=== PATIENT | female | born 1965 | race Caucasian/White ===

== ENCOUNTER 2020-06-09 07:13 | Outpatient (CLI) | payer OTHER, SELFPAY ==
[2020-06-09 07:43] LABS: Alanine Aminotransferase 28 U/L (4-35); Albumin Level 4.2 g/dL (3.5-5.1); Alkaline Phosphatase 62 U/L (38-126); Anion Gap 6 mmol/L (8-16); Aspartate Amino Transferase 26 U/L (14-36); Bilirubin,Total 0.5 mg/dL (0.2-1.3); Blood Urea Nitrogen 13 mg/dL (7-17); Calcium 8.8 mg/dL (8.4-10.2); Carbon Dioxide 30 mmol/L (22-30); Chloride 105 mmol/L (98-107); Estimated Glomerular Filt Rate > 60; Glucose 100 mg/dL (65-105); Potassium 3.9 mmol/L (3.4-5.0); Sodium 141 mmol/L (137-145)
== END 2020-06-09 07:14 | disposition home or self-care (01) ==
PROVIDERS: PCP Family Medicine; Visit Provider Family Medicine
DX: R19.00 Intra-abdominal and pelvic swelling, mass and lump, unspecified site (principal); R30.0 Dysuria
CPT/HCPCS: 36415; 80053

== ENCOUNTER → 2020-06-10 14:55 | Outpatient (CLI) | payer OTHER, SELFPAY ==
--- NOTE | ~2020-06-10 | US_ITS ---
EXAMINATION: US pelvic complete DATE: 06/10/2020 15:20 INDICATION: Intra-abdominal and pelvic swelling, dysuria TECHNIQUE: Multiple transabdominal sonographic images of the pelvis were obtained. COMPARISON: None. FINDINGS: The uterus measures 8.2 x 3.4 x 3.9 cm. The endometrial complex measures 4 mm. The right ov tejal measures 1.7 x 2.1 x 2.3 cm. The left ovary measures 2.4 x 1.5 x 2.1 cm. There is normal vascular flow in the ovaries. There is no free fluid in the pelvis. IMPRESSION: 1. No sonographic correlate for the patient's symptoms. Reviewed, dictated and finalized at location A.
== END ==
PROVIDERS: PCP Family Medicine; Visit Provider Family Medicine
DX: R19.00 Intra-abdominal and pelvic swelling, mass and lump, unspecified site (principal); R30.0 Dysuria
CPT/HCPCS: 76856

== ENCOUNTER → 2020-10-20 10:44 | Outpatient (CLI) | payer OTHER, SELFPAY ==
--- NOTE | ~2020-10-20 | XR_ITS ---
XR thoracic spine 3V DATE: 10/20/2020 11:10 INDICATION: Back pain, scoliosis TECHNIQUE: Standing AP and lateral and swimmer views COMPARISON: None FINDINGS: Moderate degenerative disc disease at C5-6 and moderately severe degenerative disc disease at C6-7. Diffuse osteopenia. There is minimal dextro scoliosis of the thoracic spine. No fracture or dislocation or bone destruction. The thoracic pedicles are intact. There is minimal th oracic spine degenerative spurring. No paraspinal soft tissue thickening. Status post cholecystectomy. IMPRESSION: Diffuse osteopenia Degenerative changes of the cervical and to lesser extent thoracic spine Minimal dextroscoliosis of the thoracic spine Reviewed, dictated and finalized at location A.
== END ==
PROVIDERS: PCP Family Medicine; Visit Provider Family Medicine
DX: M54.9 Dorsalgia, unspecified (principal); M41.9 Scoliosis, unspecified; M85.88 Other specified disorders of bone density and structure, other site
CPT/HCPCS: 72072

== ENCOUNTER → 2020-10-26 13:26 | Outpatient (CLI) | payer OTHER, SELFPAY ==
--- NOTE | ~2020-10-26 | DEXA_ITS ---
Bone Density Report Name: Bety Barrientos Age: 55 Sex: Female Ethnicity: White Date of : 1965 Indication: postmenopausal; screening for osteoporosis; prior fracture; Referring Provider: HARLEY ESPOSITO Study: Bone densitometry was performed. Exam Date: October 26, 2020 Accession number: [id number] Bone Density: Region BMD T-score Z-score Classification AP Spine (L1-L4) 1.013 -0.3 0.8 Normal Femoral Neck (Left) 0.697 -1.4 -0.3 Osteopenia Total Hip (Left) 0.951 0.1 0.8 Normal Femoral Neck (Right) 0.802 -0.4 0.6 Normal Total Hip (Right) 0.908 -0.3 0.4 Normal Total Hip Mean 0.930 -0.1 0.6 Normal World Health Organization criteria for BMD impression classify patients as: Normal (T-score at or above -1.0), Osteopenia (T-score between -1.0 and -2.5), or Osteoporosis (T-score at or below -2.5). 10-year Fracture Risk(1): Major Osteoporotic Fracture 11% Hip Fracture 0.7% Reported Risk Factors: [place] (), Neck BMD=0.697, BMI=30.8, previous fracture (1) FRAX(R) Version 3.08. Fracture probability calculated for an untreated patient. Fracture probability may be lower if the patient has received treatment. Clinical Information Provided by Patient: Has had a low trauma fracture Patient maximum height was 65 Menopause Age: 53 No regular weight bearing exercise Drinks caffeinated beverages Onset of menses at age 13 Number of children 2 Impression: The patient has low bone mass, based on the Left Femoral Neck T-score. The patient has an estimated ten-year risk of hip fracture of 0.7% and an estimated ten-year risk of major fracture of 11%, based on the WHO FRAX algorithm. The patient has risk factors, including: previous fracture. Discussion: BONE DENSITY IS LOW AT ONE OR MORE SKELETAL SITES. This patient's lowest T-score is low at one or more skeletal sites. It meets the World Health Organization's (WHO) criteria for ?low bone mass? (T-score between -1.0 and -2.5). The patient's 10-year risk of fracture as calculated by FRAX is less than the threshold where pharmacological therapy is recommended by the National Osteoporosis Foundation (NOF). However, all treatment decisions require clinical judgment and consideration of individual patient factors, including patient preferences, comorbidities, previous drug use, risk factors not captured in the FRAX model (e.g., frailty, falls, vitamin D deficiency, increased bone turnover, interval significant decline in bone density) and possible under or overestimation of fracture risk by FRAX. The patient should follow a healthful lifestyle (good nutrition with adequate calcium and vitamin D, and appropriate weight-bearing exercise). Follow-Up: Consider repeating this study in 2 to 3 years to reassess this patient's status, or sooner if there is marianna
== END ==
PROVIDERS: PCP Family Medicine; Visit Provider Family Medicine
DX: M85.852 Other specified disorders of bone density and structure, left thigh (principal)
CPT/HCPCS: 77080

== ENCOUNTER 2020-12-17 08:20 | Outpatient (CLI) | payer OTHER, SELFPAY ==
[2020-12-17 09:47] LABS: Basophils Percent Auto 0.6 % (0.2-1.2); Eosinophils Absolute Auto 0.2 K/mm3 (0-0.3); Eosinophils Percent Auto 3.5 % (0-4.4); Hematocrit 40.6 % (37.0-47.0); Hemoglobin 13.4 g/dL (12.0-15.0); Immature Granulocyte Absolute 0.02 K/mm3 (0.00-0.031); Immature Granulocyte Percent A 0.3 % (0-0.5); Lymphocytes Absolute Auto 1.68 K/mm3 (0.9-3.2); Lymphocytes Percent Auto 25.9 % (18.3-44.2); Mean Corpuscular Hemoglobin 32.1 pg (26-34); Mean Corpuscular Volume 97.1 fl (80-100); Monocytes Absolute Auto 0.4 K/mm3 (0.1-0.6); Monocytes Percent Auto 6.5 % (2.6-8.5); Neutrophils Absolute Auto 4.1 K/mm3 (1.3-6.7); Neutrophils Percent Auto 63.2 % (45.5-73.1); Platelet Count Result 291 k/mm3 (150-375); Red Blood Count 4.18 M/mm3 (4.2-5.4); Red Cell Distribution Width 11.9 % (11.5-14.5); White Blood Count 6.5 K/mm3 (4.5-10.0)
[2020-12-17 11:29] LABS: Alanine Aminotransferase 21 U/L (4-35); Albumin Level 4.5 g/dL (3.5-5.1); Alkaline Phosphatase 57 U/L (38-126); Amylase 66 U/L (30-110); Anion Gap 8 mmol/L (8-16); Aspartate Amino Transferase 24 U/L (14-36); Bilirubin,Total 0.5 mg/dL (0.2-1.3); Blood Urea Nitrogen 8 mg/dL (7-17); Calcium 8.9 mg/dL (8.4-10.2); Carbon Dioxide 28 mmol/L (22-30); Chloride 107 mmol/L (98-107); Cholesterol 208 mg/dL (0-200); Estimated Glomerular Filt Rate > 60; Glucose 96 mg/dL (65-110); HDL Direct 50 mg/dL; Lipase 92 U/L (23-300); Potassium 4.4 mmol/L (3.4-5.0); Sodium 143 mmol/L (137-145); Triglycerides 112 mg/dL (<150)
[2020-12-17 11:40] LABS: LDL Cholesterol Direct 115 mg/dL
== END 2020-12-17 08:21 | disposition home or self-care (01) ==
PROVIDERS: PCP Family Medicine; Visit Provider Physician Assistant Medical
DX: E66.9 Obesity, unspecified (principal); R10.9 Unspecified abdominal pain; K90.0 Celiac disease; Z68.31 Body mass index [BMI] 31.0-31.9, adult
CPT/HCPCS: 36415; 80053; 80061; 82150; 83690; 84443; 85025

== ENCOUNTER → 2021-04-15 10:07 | Outpatient (CLI) | payer OTHER, SELFPAY ==
--- NOTE | ~2021-04-15 | MR_ITS ---
EXAMINATION: MR thoracic spine wo con DATE: 04/15/2021 10:54 INDICATION: Thoracic radiculopathy. TECHNIQUE: Magnetic resonance imaging (MRI) of the thoracic spine was performed without intravenous c ontrast. Sagittal localizer T1-weighted FSE of the cervical spine was obtained. Thoracic spine sequen quita included sagittal T2-weighted FSE, sagittal T1-weighted FSE, sagittal STIR FSE, and axial T2-weig hted FSE. COMPARISON: Thoracic spine radiographs 10/20/2020 FINDINGS: There is 7 degrees dextrocurvature of thoracic lumbar spine. Vertebral body heights are nor mal. There is mildly decreased disc height from T3-T4 through T6-T7 and at T12-L1. At T12-L1, there i s a right central extrusion with mild central canal stenosis. There is multilevel facet joint osteoar thritis, severe in upper thoracic spine. On the right, there is mild neural foraminal stenosis T2-T3, T3-T4, T5-T6, and T6-T7. On the left, there is mild neural foraminal stenosis at T1-T2, T2-T3, T3-T4 , and T4-T5. The spinal cord signal intensity is normal. IMPRESSION: 1. Mild thoracic spondylosis. Reviewed, dictated and finalized at location E. [employer]
--- NOTE | ~2021-04-15 | MR_ITS ---
EXAMINATION: MR lumbar spine wo con EXAM DATE: 04/15/2021 11:07 INDICATION: M54.17 - Radiculopathy, lumbosacral region . TECHNIQUE: Multi-sequential, multiplanar MR images of the lumbar spine were obtained without contrast . Sagittal T1, T2, T2 fat saturation images. Axial T2 weighted images. There is no prior study for comparison. FINDINGS: Mild to moderate loss of the L4-5 and L5-S1 disc height. Mild disc bulges at T11-T12, L4-5 and L5-S1. There are no suspicious marrow signal abnormalities. The vertebral bodies are aligned in t he AP dimension. Paraspinal soft tissue is unremarkable. Level by level evaluation: T12-L1: Disc does not extend beyond the endplate margin. Facet arthropathy: Mild. Neural foraminal stenosis: No stenosis. Central canal stenosis: No stenosis. L1-L2: Disc does not extend beyond the endplate margin. Facet arthropathy: Mild. Neural foraminal stenosis: No stenosis. Central canal stenosis: No stenosis. L2-L3: Disc does not extend beyond the endplate margin. Facet arthropathy: Mild to moderate. Neural foraminal stenosis: No stenosis. Central canal stenosis: No stenosis. L3-L4: Disc does not extend beyond the endplate margin. Facet arthropathy: Moderate. Neural foraminal stenosis: No stenosis: Central canal stenosis: No stenosis. L4-5: There is a mild diffuse disc bulge. Facet arthropathy: Mild to moderate. Neural foraminal stenosis: Mild bilateral. Central canal stenosis: Mild. L5-S1: Mild disc bulge. Facet arthropathy: Mild to moderate. Neural foraminal stenosis: Mild bilateral . Central canal stenosis: Mild. IMPRESSION: Mild to moderate lumbar spondylosis. Reviewed, dictated and finalized at location B. [employer]
== END ==
PROVIDERS: PCP Family Medicine; Visit Provider Family Medicine
DX: M47.27 Other spondylosis with radiculopathy, lumbosacral region (principal); M47.24 Other spondylosis with radiculopathy, thoracic region
CPT/HCPCS: 72146; 72148

== ENCOUNTER 2021-08-26 10:48 | Emergency (ER) | payer OTHER, SELFPAY ==
[2021-08-26 10:55] VITALS: BP 122/67; PULSE 73; RESP 18; TEMP 36.3; O2SAT 100
--- NOTE | 2021-08-26 11:26 | ED.FEMALEGU ---
HPI - Female Genitourinary General Chief complaint: Urogenital-Female Stated complaint: blood clots in urine Time Seen by Provider: 08/26/21 11:27 Source: patient, RN notes reviewed and old records reviewed Mode of arrival: ambulatory Limitations: no limitations History of Present Illness HPI Narrative: 55 year old female who presents to [facility] care with complaints of dime size blood clots in urine today and urgency with urination, Patient reports that she had some blood in her urine one week ago and her doctors office called in a prescription for Macrobid which she completed.Patient reports that she does have some left flank discomfort, denies any burning or pain with urination. Patient reports that she has not had any nausea or vomiting or any episodes of fevers. MD elicited complaint: UTI and other (hematuria) Pertinent past history: tubal ligation and other (post menopausal) Onset (ago): hour(s) (this morning) Related Data Allergies Allergy/AdvReac Type Severity Reaction Status Date / Time Penicillins Allergy Intermediate throat Verified 08/26/21 10:56 swelling Review of Systems Review of Systems: CONSTITUTIONAL: Denies fever, chills, or sweats. EYES: Denies visual changes, redness, or discharge. ENT: Denies rhinorrhea, congestion, sore throat, or otalgia. CARDIOVASCULAR: Denies chest pain, palpitations, or edema. RESPIRATORY: Denies cough or dyspnea. GASTROINTESTINAL: Denies abdominal pain, nausea, vomiting, or diarrhea. GENITOURINARY: Positive urinary urgency and hematuria. SKIN: Denies rash or itching. MUSCULOSKELETAL: Denies any acute back pain, joint pain, or myalgia. NEUROLOGIC: Denies headache, numbness, or weakness. PSYCHIATRIC: Denies anxiety or depression. [facility] Past Medical History Medical History (Updated 08/26/21 @ 11:39 by Dina Prabhakar NP) Osteopenia Sleep apnea with use of continuous positive airway pressure (CPAP) Xerostomia Surgical History Surgical History Status post nasal septoplasty (~03/2019) Family History Family History Grandparent Family history of kidney disease Carcinoma of colon Family history of Alzheimer's disease Family history of primary malignant neoplasm of liver Bladder cancer Mother Family history of lung cancer Family history of mental disorder Family history of malignant neoplasm of bone Father Family history of Alzheimer's disease Social History Social History (Updated 03/16/21 @ 13:26 by Elizabeth Pollack, [facility]) Smoking status: Never smoker Alcohol intake: current Comments At time of signature, agree with nursing past medical, surgical, social and family history. There is no relevant family history pertinent to the presenting complaint Exam Narrative: GENERAL: Well-appearing, well-nourished, and in no acute distress. HEAD: Normocephalic, atraumatic. EYES: PERRLA and EOMI. ENT: Nares clear, no rhinorrhea or epistaxis. Mucous membranes moist. NECK: Supple.no lymphadenopathy CHEST: Clear to auscultation. No respiratory distress. SAO2 100% on room air HEART: Regular rate and rhythm. No murmur heard. Normal peripheral pulses. ABDOMEN: Soft, nontender to palpation, nondistended, normal active bowel sounds, denies any suprapubic pain, no pain to left flank on examination EXTREMITIES: Normal range of motion. No edema. SKIN: Warm, dry, no rash. NEURO: No focal deficits. Alert and oriented x3. Course Course Level of Care: Express Care Visit Vital Signs Vital signs: Vital Signs Temperature 36.3 C L 08/26/21 10:55 Pulse Rate 73 08/26/21 10:55 Respiratory Rate 18 08/26/21 10:55 Blood Pressure 122/67 08/26/21 10:55 Pulse Oximetry 100 08/26/21 10:55 Oxygen Delivery Room Air 08/26/21 10:55 Temperature 36.3 C L 08/26/21 10:55 Pulse Rate 73 08/26/21 10:55 Respiratory Rate 18 08/26/21 10:55 Blood Pr
== END 2021-08-26 11:43 | disposition home or self-care (01) ==
PROVIDERS: Emergency Provider Registered Nurse; PCP Family Medicine
DX: N39.0 Urinary tract infection, site not specified (principal); M85.80 Other specified disorders of bone density and structure, unspecified site; G47.30 Sleep apnea, unspecified
CPT/HCPCS: 81003; 87086; 99213; G0463

== ENCOUNTER → 2021-09-14 14:18 | Outpatient (CLI) | payer OTHER, SELFPAY ==
--- NOTE | ~2021-09-14 | CT_ITS ---
EXAMINATION: CT abdomen pelvis wo con DATE: 09/14/2021 14:33 INDICATION: Hematuria TECHNIQUE: Computed tomography (CT) of the abdomen and pelvis was performed without intravenous contr ast. Automated exposure control and iterative reconstruction technique were employed. Exam dose: 695 .97 mGy-cm total exam DLP. COMPARISON: None. FINDINGS: The lung bases are clear. Normal heart size. No pericardial or pleural effusion. Status post cholecystectomy. The liver, spleen, pancreas, adrenal glands and kidneys are unremarkable on this limited noncontrast examination. No bile duct or pancreatic duct dilatation. No urinary tract calculus or hydroureteronephrosis. The uterus and adnexal areas and urinary bladder are unremarkable. Normal appendix. No bowel obstruction or intraperitoneal free air. Normal caliber of the abdominal aorta. No intraperitoneal or retroperitoneal or pelvic mass lesion o r lymphadenopathy. IMPRESSION: Status post cholecystectomy Reviewed, dictated and finalized at Location A. Reviewed, dictated and finalized at location A. IMPRESSION: Status post cholecystectomy
== END ==
PROVIDERS: PCP Family Medicine; Visit Provider Physician Assistant
DX: R31.9 Hematuria, unspecified (principal)
CPT/HCPCS: 74176

== ENCOUNTER 2021-12-21 10:00 | Emergency (ER) | payer OTHER, SELFPAY ==
[2021-12-21 10:09] VITALS: BP 125/66; PULSE 70; RESP 16; TEMP 37.1; O2SAT 100
--- NOTE | 2021-12-21 10:19 | ED.URI ---
HPI - URI/Sore Throat General Chief Complaint: Upper Respiratory Infection Stated Complaint: sore throat,fever, congestion Time Seen by Provider: 12/21/21 10:19 History of Present Illness HPI Narrative: 56-year-old female presenting for complaint of sore throat, sinus congestion and fever at the onset of symptoms about 3 days ago. She denies nausea, vomiting, diarrhea, shortness of breath or wheezing. She has taken [id number] medication for symptoms. She denies sick contacts. She states she is going out of town and is concerned to expose people. Negative covid test at home today. Related Data Allergies Allergy/AdvReac Type Severity Reaction Status Date / Time Penicillins Allergy Intermediate throat Verified 12/21/21 10:22 swelling Review of Systems Review of Systems: CONSTITUTIONAL: Denies body aches, fever, chills, or sweats. EYES: Denies visual changes, redness, or discharge. ENT: reports rhinorrhea, congestion, sore throat, otalgia. CARDIOVASCULAR: Denies chest pain, palpitations, or edema. RESPIRATORY: Denies dyspnea. GASTROINTESTINAL: Denies abdominal pain, nausea, vomiting, or diarrhea. MUSCULOSKELETAL: Denies back pain, joint pain, or myalgia. NEUROLOGIC: Denies headache PMFSH Past Medical History Medical History Fatigue Osteopenia Sleep apnea with use of continuous positive airway pressure (CPAP) Xerostomia Surgical History Surgical History Status post nasal septoplasty (~03/2019) Family History Family History Grandparent Family history of kidney disease Carcinoma of colon Family history of Alzheimer's disease Family history of primary malignant neoplasm of liver Bladder cancer Mother Family history of lung cancer Family history of mental disorder Family history of malignant neoplasm of bone Father Family history of Alzheimer's disease Social History Social History Smoking status: Never smoker Alcohol intake: current Exam Narrative: GENERAL: well-appearing EYES: conjunctivae clear ENT: Mucous membranes moist. TMs pearly glasgow with normal light reflex bilaterally; no tragal tenderness. Oropharynx erythematous without lesions. NECK: Supple. No lymphadenopathy CHEST: Clear to auscultation, breath sounds equal. HEART: Regular rate and rhythm. No murmur heard. SKIN: Warm, dry, no rash. NEURO: Alert and oriented x3. Course Course Emergency Course: Patient is aware of diagnosis, understands and agrees to treatment plan. Anticipatory guidance given. Patient agrees to follow-up as directed and is aware of reasons to seek care at the emergency department. Portions of this record may have been created with voice recognition software Level of Care: Express Care Visit Vital Signs Vital signs: Vital Signs Temperature 98.7 F 12/21/21 10:09 Pulse Rate 70 12/21/21 10:09 Respiratory Rate 16 12/21/21 10:09 Blood Pressure 125/66 12/21/21 10:09 Pulse Oximetry 100 12/21/21 10:09 Temperature 98.7 F 12/21/21 10:09 Pulse Rate 70 12/21/21 10:09 Respiratory Rate 16 12/21/21 10:09 Blood Pressure 125/66 12/21/21 10:09 Pulse Oximetry 100 12/21/21 10:09 MDM - URI/Sore Throat MDM Narrative Medical decision making narrative: Neg strep result reviewed with pt. Advise supportive treatments. Patient is appropriate for outpatient treatment and follow-up. Differential Diagnosis Differential diagnosis: Likely upper respiratory infection, viral infection and pharyngitis Lab Data Labs: Strep Screen Presumptive Negative *(Reference Range: Negative)* Discharge Plan Discharge Clinical Impression: Upper respiratory infection Patient Disposition: Home,
== END 2021-12-21 10:50 | disposition home or self-care (01) ==
PROVIDERS: Emergency Provider Nurse Practitioner Family; PCP Family Medicine
DX: J06.9 Acute upper respiratory infection, unspecified (principal); M85.80 Other specified disorders of bone density and structure, unspecified site; G47.30 Sleep apnea, unspecified
CPT/HCPCS: 87081; 87880; 99213; G0463

== ENCOUNTER 2022-01-05 07:27 | Outpatient (CLI) | payer OTHER, SELFPAY ==
--- NOTE | ~2022-01-05 | MM_ITS ---
EXAMINATION: MM screening dustin BI w susan HISTORY: Screening TECHNIQUE: Craniocaudal and mediolateral oblique 3-D tomosynthesis images were obtained and synthetic 2-D images were generated. CAD analysis was submitted and interpreted. COMPARISON: Comparison to multiple prior studies sequentially, with oldest reviewed study dated Ramana rison to multiple prior studies sequentially, with oldest reviewed study dated 12/07/2016. . BREAST PARENCHYMAL COMPOSITION: There are scattered areas of fibroglandular density. FINDINGS: There is no evidence of suspicious mass, calcification, or architectural distortion to sugg est malignancy in either breast. There has been no suspicious interval change. IMPRESSION: 1. No mammographic evidence of malignancy. 2. Recommend routine screening mammography in one year. BI-RADS Category 1: Negative Reviewed, dictated and finalized at location A.
== END 2022-01-05 07:28 | disposition home or self-care (01) ==
PROVIDERS: PCP Family Medicine; Visit Provider Family Medicine
DX: Z12.31 Encounter for screening mammogram for malignant neoplasm of breast (principal)
CPT/HCPCS: 77063; 77067

== ENCOUNTER 2022-01-09 15:10 | Outpatient (CLI) | payer OTHER, SELFPAY ==
[2022-01-09 18:52] LABS: Basophils Absolute Auto 0.1 K/mm3 (0.0-0.1); Basophils Percent Auto 0.7 % (0.2-1.2); Eosinophils Absolute Auto 0.2 K/mm3 (0-0.3); Eosinophils Percent Auto 3.2 % (0-4.4); Hematocrit 41.4 % (37.0-47.0); Hemoglobin 13.4 g/dL (12.0-15.0); Immature Granulocyte Absolute 0.01 K/mm3 (0.00-0.031); Immature Granulocyte Percent A 0.1 % (0-0.5); Lymphocytes Absolute Auto 2.56 K/mm3 (0.9-3.2); Lymphocytes Percent Auto 35.3 % (18.3-44.2); Mean Corpuscular HGB Conc 32.4 g/dl (32-36); Mean Corpuscular Hemoglobin 31.9 pg (26-34); Mean Corpuscular Volume 98.6 fl (80-100); Mean Platelet Volume 11.2 fl (7.4-10.4); Monocytes Absolute Auto 0.5 K/mm3 (0.1-0.6); Monocytes Percent Auto 7.3 % (2.6-8.5); Neutrophils Absolute Auto 3.9 K/mm3 (1.3-6.7); Neutrophils Percent Auto 53.4 % (45.5-73.1); Platelet Count Result 384 k/mm3 (150-375); Red Cell Distribution Width 12.3 % (11.5-14.5); White Blood Count 7.3 K/mm3 (4.5-10.0)
[2022-01-09 19:19] LABS: Alanine Aminotransferase 28 U/L (6-35); Albumin Level 4.5 g/dL (3.5-5.1); Alkaline Phosphatase 65 U/L (38-126); Anion Gap 14 mmol/L (8-16); Aspartate Amino Transferase 22 U/L (14-36); Bilirubin,Total 0.2 mg/dL (0.2-1.3); Blood Urea Nitrogen 8 mg/dL (7-17); Calcium 9.2 mg/dL (8.4-10.2); Carbon Dioxide 27 mmol/L (22-30); Chloride 100 mmol/L (98-107); Estimated Glomerular Filt Rate > 60; Glucose 106 mg/dL (65-110); Potassium 4.3 mmol/L (3.4-5.0); Sodium 141 mmol/L (137-145)
== END 2022-01-09 15:11 | disposition home or self-care (01) ==
LOC: ANHGOSHLAB 15:11
PROVIDERS: PCP Family Medicine; Visit Provider Physician Assistant
DX: B34.9 Viral infection, unspecified (principal)
CPT/HCPCS: 36415; 80053; 85025

== ENCOUNTER 2022-07-05 13:58 | Outpatient (CLI) | payer OTHER, SELFPAY ==
[2022-07-05 20:12] LABS: Free T4 Free Thyroxine 0.93 ng/mL (0.78-2.19); Vitamin D 25 Hydroxy 20.6 ng/mL
[2022-07-05 21:23] LABS: Hemoglobin A1C 5.2 % (<5.7)
== END 2022-07-05 13:59 | disposition home or self-care (01) ==
LOC: ANHGOSHLAB 13:59
PROVIDERS: PCP Family Medicine; Visit Provider Family Medicine
DX: R53.83 Other fatigue (principal); R73.9 Hyperglycemia, unspecified; E55.9 Vitamin D deficiency, unspecified
CPT/HCPCS: 36415; 82306; 83036; 84439; 84443

== ENCOUNTER 2022-12-15 07:47 | Outpatient (CLI) | payer OTHER, SELFPAY ==
--- NOTE | 2022-12-15 07:56 | ECHO_ITS ---
Patient Info Name: Bety Barrientos Age: 57 years : 1965 Gender: Female Ht: 65 in Wt: 195 lbs BSA: 2.05 m2 HR: 66 bpm BP: 123 / 73 mmHg Heart Rhythm: Sinus Rhythm Technical Quality: Fair Exam Date: 12/15/2022 8:07 AM Exam Location: [facility]monary Patient Status: Outpatient Admit Date: 12/15/2022 Staff Ordering Physician: James Martinez MD Insurance Claims Examiner: Lisa Vargas RDCS Attending Provider: James Martinez MD Referring Physician: Juan YUAN; Exam Type: CA echo doppler color flow Study Info Indications R01.1 - Cardiac murmur, unspecified Complete two-dimensional, color flow and Doppler transthoracic echocardiogram is performed. Summary 1. Complete two-dimensional, color flow and Doppler transthoracic echocardiogram is performed. 2. Left ventricular chamber dimension is normal. 3. Left ventricular systolic function is normal, estimated at 60-65%. 4. There is mild concentric increased left ventricular wall thickness. 5. The left ventricular diastolic function is grade III diastolic dysfunction. 6. E/e' 9 is minimally elevated. 7. Left atrial chamber dimension is mildly enlarged. 8. There is mild mitral valve regurgitation. 9. There is trace tricuspid valve regurgitation. 10. No pulmonary hypertension, estimated pulmonary arterial systolic pressure is 22 mmHg. 11. There is trace pulmonic regurgitation. Left Ventricle E/e' 9 is minimally elevated. Left ventricular chamber dimension is normal. Left ventricular systolic function is normal, estimated at 60-65%. There is mild concentric increased left ventricular wall thickness. The left ventricular diastolic function is grade III diastolic dysfunction. Right Ventricle Right ventricular systolic function is normal and with normal TAPSE 1.8 cm. Right ventricular chamber dimension is normal. Left Atria Left atrial chamber dimension is mildly enlarged. Right Atria Right atrial chamber dimension is normal. Aortic Valve The aortic valve is trileaflet. There is no aortic valve stenosis. There is no aortic valve regurgitation. Pulmonic Valve There is trace pulmonic regurgitation. Mitral Valve There is no mitral valve stenosis. There is mild mitral valve regurgitation. Tricuspid Valve There is trace tricuspid valve regurgitation. No pulmonary hypertension, estimated pulmonary arterial systolic pressure is 22 mmHg. Pericardium/Pleural There is no pericardial effusion. Inferior Vena Cava Normal inferior vena cava with >50% collapse upon inspiration consistent with normal right atrial pressure, 5 mmHg. Aorta The aortic root size at the sinus of Valsalva is normal. Left Ventricular Outflow Tract Name Value Normal LVOT 2D LVOT Diameter 2.0 cm LVOT Doppler LVOT Peak Gradient 4 mmHg LVOT Mean Gradient 1 mmHg LVOT VTI 19 cm LVOT VTI/AV VTI Ratio 0.7 LVOT Stroke Volume 61 ml LVOT CO 3.3 l/min LVOT CI 1.6 l/min/m2 Pulmonic Valve
== END 2022-12-15 07:48 | disposition home or self-care (01) ==
PROVIDERS: PCP Family Medicine; Visit Provider Family Medicine
DX: R01.1 Cardiac murmur, unspecified (principal)
CPT/HCPCS: 93306

== ENCOUNTER 2023-05-29 07:18 | Outpatient (CLI) | payer OTHER, SELFPAY ==
--- NOTE | ~2023-05-29 | MM_ITS ---
EXAMINATION: MM screening dustin BI w susan HISTORY: Screening mammogram TECHNIQUE: Craniocaudal and mediolateral oblique 3-D tomosynthesis images were obtained and synthetic 2-D images were generated. CAD analysis was submitted and interpreted. COMPARISON: 01/05/2022, 05/16/2018 bilateral screening mammogram examinations BREAST PARENCHYMAL COMPOSITION: There are scattered areas of fibroglandular density. FINDINGS: There is no evidence of suspicious mass, calcification, or architectural distortion to sugg est malignancy in either breast. There has been no suspicious interval change. IMPRESSION: 1. No mammographic evidence of malignancy. 2. Recommend routine screening mammography in one year. BI-RADS Category 1: Negative Reviewed, dictated and finalized at location A.
== END 2023-05-29 07:19 | disposition home or self-care (01) ==
PROVIDERS: PCP Family Medicine; Visit Provider Family Medicine
DX: Z12.31 Encounter for screening mammogram for malignant neoplasm of breast (principal)
CPT/HCPCS: 77063; 77067

== ENCOUNTER 2023-12-27 08:05 | Outpatient (CLI) | payer OTHER, SELFPAY ==
[2023-12-27 18:47] LABS: Basophils Absolute Auto 0.1 K/mm3 (0.0-0.1); Eosinophils Absolute Auto 0.2 K/mm3 (0-0.3); Eosinophils Percent Auto 3.3 % (0-4.4); Hematocrit 38.5 % (37.0-47.0); Hemoglobin 12.9 g/dL (12.0-15.0); Immature Granulocyte Absolute 0.01 K/mm3 (0.00-0.031); Immature Granulocyte Percent A 0.2 % (0-0.5); Lymphocytes Absolute Auto 1.57 K/mm3 (0.9-3.2); Lymphocytes Percent Auto 25.8 % (18.3-44.2); Mean Corpuscular HGB Conc 33.5 g/dl (32-36); Mean Corpuscular Hemoglobin 32.3 pg (26-34); Mean Corpuscular Volume 96.3 fl (80-100); Mean Platelet Volume 11.7 fl (7.4-10.4); Monocytes Absolute Auto 0.4 K/mm3 (0.1-0.6); Monocytes Percent Auto 7.2 % (2.6-8.5); Neutrophils Absolute Auto 3.8 K/mm3 (1.3-6.7); Neutrophils Percent Auto 62.5 % (45.5-73.1); Platelet Count Result 275 k/mm3 (150-375); Red Cell Distribution Width 12.1 % (11.5-14.5); White Blood Count 6.1 K/mm3 (4.5-10.0)
[2023-12-27 19:21] LABS: Erythrocyte Sedimentation Rate 25 mm/hr (0-20)
[2023-12-27 19:25] LABS: Iron 133 ug/dL (37-170)
[2023-12-27 19:35] LABS: Alanine Aminotransferase 25 U/L (6-35); Albumin Level 4.1 g/dL (3.5-5.1); Alkaline Phosphatase 65 U/L (38-126); Anion Gap 8 mmol/L (4-12); Aspartate Amino Transferase 31 U/L (14-36); Bilirubin,Total 0.7 mg/dL (0.2-1.3); Blood Urea Nitrogen 8 mg/dL (7-17); CRP < 0.5 mg/dL (<1.0); Calcium 8.8 mg/dL (8.4-10.2); Carbon Dioxide 25 mmol/L (22-30); Chloride 106 mmol/L (98-107); Cholesterol 208 mg/dL (0-200); Estimated Glomerular Filt Rate > 60; Glucose 85 mg/dL (65-110); HDL Direct 45 mg/dL; Magnesium 2.2 mg/dL (1.6-2.3); Percent Iron Saturation 38 % (20-50); Sodium 139 mmol/L (137-145); Triglycerides 144 mg/dL (<150)
[2023-12-27 19:44] LABS: LDL Cholesterol Direct 107 mg/dL
[2023-12-27 19:51] LABS: Vitamin D 25 Hydroxy 20.9 ng/mL
[2023-12-27 21:01] LABS: Hemoglobin A1C 5.2 % (<5.7)
[2023-12-29 23:24] LABS: Zinc 74 mcg/dL (60-130)
[2023-12-31 16:13] LABS: Testosterone Total 22 ng/dL (2-45)
== END 2023-12-27 08:06 | disposition home or self-care (01) ==
LOC: ANHGOSHLAB 08:08
PROVIDERS: PCP Family Medicine; Visit Provider Nurse Practitioner Family
DX: R53.83 Other fatigue (principal); G47.00 Insomnia, unspecified; E66.9 Obesity, unspecified; E55.9 Vitamin D deficiency, unspecified; R73.01 Impaired fasting glucose; K11.7 Disturbances of salivary secretion; M25.50 Pain in unspecified joint; Z78.0 Asymptomatic menopausal state
CPT/HCPCS: 36415; 80053; 80061; 82306; 82672; 83001; 83036; 83540; 83550; 83735; 84403; 84443; 84630; 85025; 85652; 86038; 86039; 86140

== ENCOUNTER 2024-05-07 11:04 | Outpatient (CLI) | payer OTHER, SELFPAY ==
--- OUTSIDE RECORDS SUMMARY | 2024-05-07 12:46 | XMS_ITS | Clinical Summary ---
Author Organization [facility] Address [address] [place] [address] Care Team Providers Care Call Specialist Name Role Phone James Martinez MD Primary Care Provider [phone] [phone] Allergies Active Allergy Reactions Criticality Noted Date Comments Penicillins Other (See comments) Low Uvula/throat swelled up shortly after starting medication Reaction was over 20 years ago Medications cetirizine (ZyrTEC) 10 mg tablet Take 1 tablet (10 mg total) by mouth daily Active escitalopram (LEXAPRO) 20 mg tablet Take 0.5 tablets (10 mg total) by mouth nightly Active fluticasone propionate (FLONASE) 50 mcg/actuation nasal spray SPRAY 2 SPRAYS INTO EACH NOSTRIL EVERY DAY 48 mL 1 06/16/2019 Active Active Problems Problem Noted Date Diagnosed Date Diastolic dysfunction 06/06/2023 Depression 02/24/2019 Anxiety 02/24/2019 Irritable bowel syndrome 02/24/2019 Deviated nasal septum 12/19/2018 Overview (12/19/2018): Added automatically from request for surgery [id number] Hypertrophy of nasal turbinates 12/19/2018 Overview (12/19/2018): Added automatically from request for surgery [id number] Dysfunction of both eustachian tubes 12/19/2018 Overview (12/19/2018): Added automatically from request for surgery [id number] Resolved Problems Problem Noted Date Diagnosed Date Resolved Date Closed fracture of tibia 10/06/2009 Surgical History Surgery Date Site/Laterality Comments SECTION 03/05/2000 - 03/04/2001 CHOLECYSTECTOMY 03/05/2002 - 03/04/2003 LEG SURGERY 03/05/2009 - 03/04/2010 Right michi DILATION AND CURETTAGE OF UTERUS SECTION Medical History Medical History Date Comments Anxiety and depression Depression 02/24/2019 Anxiety 02/24/2019 Irritable bowel syndrome 02/24/2019 Family History Medical History Relation Name Comments Alzheimer's disease Father Cancer Father Cancer Mother Relation Name Status Comments Father (Age 83) Mother (Age 50) Social History Tobacco Use Types Packs/Day Years Used Date Smoking Tobacco: Never Smokeless Tobacco: Never Alcohol Use Standard Drinks/Week Comments Yes 0 (1 standard drink = 0.6 oz pur e alcohol) occassionally Comments No Sex and Gender Information Value Date Recorded Sex Assigned at Not on file Legal Sex Female 9:35 PM ADJUNCT MATHEMATICS INSTRUCTOR Gender Identity Not on file Sexual Orientation Not on file Obstetrics History Last Filed Vital Signs Vital Sign Reading Time Taken Comments Blood Pressure 122/82 06/06/2023 8:54 AM CDT Pulse 92 06/06/2023 8:54 AM CDT Temperature 36.6 C (97.9 F) 03/07/2019 9:31 AM ADJUNCT MATHEMATICS INSTRUCTOR Respiratory Rate 11 03/07/2019 9:55 AM ADJUNCT MATHEMATICS INSTRUCTOR Oxygen Saturation 98% 06/06/2023 8:54 AM CDT Inhaled Oxygen Concentration - - Weight 88.9 kg (196 lb) 06/06/2023 8:54 AM CDT Height 165.1 cm (5' 5 ) 06/06/2023 8:54 AM CDT Body Mass Index 32.62 06/06/2023 8:54 AM CDT Plan of Treatment Health Maintenance Due Date Last Done Comments Breast Cancer Screening-Mammogram 1965 Cervical Cancer Screening 1965 Colon Cancer Screening-Colonoscopy 1965 Depression Screening 1965 Hepatitis C Screening 1965 DTaP/Tdap/Td Vaccine (1 - Tdap) 1976 Hepatitis B Screening 10/05/1983 Regular Well Visit/Exam 18-64 10/05/1983 Zoster Vaccine (1 of 2) 10/05/2015 Influenza Vaccine (#1) 2023 9, 12/19/2017 Pneumococcal vaccine <65 Aged Out No longer eligible based on patient's age to complete this topic Medical Devices Implanted Type Area Equipment Service Associate Device Identifier Shelf Expiration Date Model / Serial / Lot Implantech Alliedsil 3x2in 1 Short Term Implantable Thk.03in Sheeting - [id number] Implanted:Qty: 1 on 03/07/2019 by Shaylee Cota MD at [facility] N/A: Nose Implantech [id number] 06/04/2023 / / [id number] Insurance [facility] Advance Directives For more information, please contact: [phone] * Full Code (Latest Code Status on File) Date Activated Date Inactivated Comments 03/07/2019 9:41 AM 03/07/2019 8:37 PM Care Teams Call Specialist Relationship Specialty Start Date End Date James Martinez MD PCP - General Family Medicine 10/21/18
--- OUTSIDE RECORDS SUMMARY | 2024-05-07 12:46 | XMS_ITS | Clinical Summary ---
Author Organization [facility] Address [address] [place] [address] Care Team Providers Care Paid Search Manager Name Role Phone Unavailable Primary Care Provider Unavailabl e Source Comments [facility],non-owned Affiliates and Associated Physician Practices is amultiple site organization consisting of ambulatory clinics and hospital sitesin [place], [place], [place] and [place]. This disclosure is being madepursuant to the Care Everywhere program and may not contain all information available regarding this patient. Last updated 17.[employer] [facility] Allergies Active Allergy Reactions Criticality Noted Date Comments Penicillins Swelling 12/04/2017 Medications * Be aware that medications may not be up to date on this document. Alwaysverify current medications with the patient. Medication Sig Dispensed Refills Start Date End Date Status ESCITALOPRAM OXALATE PO A ctive Social History Tobacco Use Types Packs/Day Years Used Date Smoking Tobacco: Never Assessed Sex and Gender Information Value Date Recorded Sex Assigned at Not on file Gender Identity Not on file Sexual Orientation Not on file Last Filed Vital Signs Vital Sign Reading Time Taken Comments Blood Pressure 132/84 12/04/2017 5:07 PM CDT Pulse 100 12/04/2017 5:07 PM CDT Temperature 37.2 C (98.9 F) 12/04/2017 5:07 PM CDT Respiratory Rate 16 12/04/2017 5:07 PM CDT Oxygen Saturation 96% 12/04/2017 5:07 PM CDT Inhaled Oxygen Concentration - - Weight 83.9 kg (185 lb) 12/04/2017 5:07 PM CDT Height 165.1 cm (5' 5 ) 12/04/2017 5:07 PM CDT Body Mass Index 30.79 12/04/2017 5:07 PM CDT Plan of Treatment Health Maintenance Due Date Last Done Comments COLOGUARD (AGES 45-75) - COL ON CA SCREENING 1965 COLON MONITORING 1965 COLONOSCOPY - COLON CA SCREENING 1965 CT COLONOGRAPHY - COLON CA SCREENING 1965 Colorectal Cancer Screening 1965 FIT - COLON CA SCREENING 1965 FLEX SIG - COLON CA SCREENING 1965 LIPID TESTING 1965 MAMMOGRAM 1965 PAP SMEAR 1965 HIV SCREENING 1980 HEPATITIS C SCREENING 09/30/1983 DTAP/TDAP/TD VACCINES (1 - Tdap) 1984 HEPATITIS B VACCINE (1 of 3 - 19+ 3-dose series) 1984 PNEUMOCOCCAL VACCINE 50+ (1 of 1 - PCV) 10/05/2015 ZOSTER VACCINE (1 of 2) 10/05/2015 SCREENING FOR DIABETES 12/04/2017 COVID-19 VACCINE (1 - 2023-2 5 season) 2023 INFLUENZA VACCINE (#1) 2023 DEPRESSION SCREENING 03/05/2024 HIB VACCINE Aged Out No longer eligi ble based on patient's age to complete this topic HPV VACCINE Aged Out No longer eligi ble based on patient's age to complete this topic MENINGOCOCCAL (Group B) VACCINE Aged Out No longer eligible based on patient's age to complete this topic MENINGOCOCCAL VACCINE Aged Out No freddy ness eligible based on patient's age to complete this topic PNEUMOCOCCAL VACCINE Aged Out No long er eligible based on patient's age to complete this topic
--- OUTSIDE RECORDS SUMMARY | 2024-05-07 12:46 | XMS_ITS | Referral Summary ---
Author Organization [facility] Address [address] [place] [place] [address] Care Team Providers Care Hogshead Press Operator Name Role Phone Unavailable Primary Care Provider Unavailabl e Source Comments [facility],non-owned Affiliates and Associated Physician Practices is amultiple site organization consisting of ambulatory clinics and hospital sitesin [place], [place], [place] and [place]. This disclosure is being madepursuant to the Care Everywhere program and may not contain all information available regarding this patient. Last updated 17.[employer] [facility] Allergies Active Allergy Reactions Criticality Noted Date [...] 12/04/2017 5:07 PM CDT Plan of Treatment Not on file
--- OUTSIDE RECORDS SUMMARY | 2024-05-07 12:46 | XMS_ITS | Referral Summary ---
Author Organization [facility] C Address [address] [place] [address] Care Team Providers Care Semiconductor Bonder Name Role Phone James Martinez MD Primary Care Provider [phone] [phone] Allergies Active Allergy Reactions Criticality Noted Date [...] (12/19/2018): Added automatically from request for surgery [id number] Hypertrophy of nasal turbinates 12/19/2018 Overview (12/19/2018): Added automatically from request for surgery [id number] Dysfunction of both eustachian tubes 12/19/2018 Overview (12/19/2018): Added automatically from request for surgery [id number] Resolved Problems Problem Noted Date Diagnosed Date Resolved Date Closed fracture of tibia 10/06/2009 Social History Tobacco Use Types Packs/Day Years Used Date Smoking Tobacco: Never Smokeless Tobacco: Never Alcohol Use Standard Drinks/Week Comments Yes 0 (1 standard drink = 0.6 oz pur e alcohol) occassionally Comments No Sex and Gender Information Value Date Recorded Sex Assigned at Not on file Legal Sex Female 9:35 PM PROTECTIVE SIGNAL INSTALLER Gender Identity Not on file Sexual Orientation Not on file Last Filed Vital Signs Vital Sign Reading Time Taken Comments Blood Pressure 122/82 06/06/2023 8:54 AM CDT Pulse 92 06/06/2023 8:54 AM CDT Temperature 36.6 C (97.9 F) 03/07/2019 9:31 AM PROTECTIVE SIGNAL INSTALLER Respiratory Rate 11 03/07/2019 9:55 AM PROTECTIVE SIGNAL INSTALLER Oxygen Saturation 98% 06/06/2023 8:54 AM CDT Inhaled Oxygen Concentration - - Weight 88.9 kg (196 lb) 06/06/2023 8:54 AM CDT Height 165.1 cm (5' 5 ) 06/06/2023 8:54 AM CDT Body Mass Index 32.62 06/06/2023 8:54 AM CDT Plan of Treatment Not on file Medical Devices Implanted Type Area Molding Sander Device Identifier Shelf Expiration Date Model / Serial / Lot Implantech Alliedsil 3x2in 1 Short Term Implantable Thk.03in Sheeting - [id number] Implanted:Qty: 1 on 03/07/2019 by Shaylee Cota MD at [facility] N/A: Nose Implantech [id number] 06/04/2023 / / [id number] Insurance [facility] HMO [employer] [facility] Advance Directives For more information, please contact: [phone] * Full Code (Latest Code Status on File) Date Activated Date Inactivated Comments 03/07/2019 9:41 AM 03/07/2019 8:37 PM Care Teams Semiconductor Bonder Relationship Specialty Start Date End Date James Martinez MD PCP - General Family Medicine 10/21/18
--- OUTSIDE RECORDS SUMMARY | 2024-05-07 12:46 | XMS_ITS | Patient Health Summary ---
Author Organization [facility] Address [address] [place] [address] Care Team Providers Care Electronic Warfare Specialist Name Role Phone Unavailable Primary Care Provider Unavailabl e Note from [facility],non-owned Affiliates and Associated Physician Practices is amultiple site organization consisting of ambulatory clinics and hospital sitesin [place], [place], [place] and [place]. This disclosure is being madepursuant to the Care Everywhere program and may not contain all information available regarding this patient. Last updated 17.[facility] Allergies * Penicillins(Swelling) Medications * Be aware that medications may not be up to date on this document. Alwaysverify current medications with the patient. * ESCITALOPRAM OXALATE PO Social History Tobacco Use Types Packs/Day Years [...]
== END 2024-05-07 11:05 | disposition home or self-care (01) ==
PROVIDERS: PCP Family Medicine; Visit Provider Obstetrics & Gynecology
DX: N95.1 Menopausal and female climacteric states (principal)
CPT/HCPCS: 36415; 82672; 84402; 84403

== ENCOUNTER 2024-07-30 08:14 | Outpatient (CLI) | payer OTHER, SELFPAY ==
--- NOTE | ~2024-07-30 | DEXA_ITS ---
Bone Density Report Name: CAROLEE NUNEZ Age: 58 Sex: Female Ethnicity: White Date of : 1965 Indication: postmenopausal; screening for osteoporosis; Referring Provider: BASIA BELLE Study: Bone densitometry was performed. Exam Date: July 30, 2024 Accession number: [id number] Bone Density: Region BMD T-score Z-score Classification AP Spine(L1-L4) 0.972 -0.7 0.6 Normal Femoral Neck (Left) 0.726 -1.1 0.1 Osteopenia Total Hip (Left) 0.971 0.2 1.1 Normal Femoral Neck (Right) 0.792 -0.5 0.7 Normal Total Hip (Right) 0.915 -0.2 0.7 Normal Total Hip Mean 0.943 0.0 0.9 Normal World Health Organization criteria for BMD impression classify patients as: Normal (T-score at or above -1.0), Osteopenia (T-score between -1.0 and -2.5), or Osteoporosis (T-score at or below -2.5). 10-year Fracture Risk(1): Major Osteoporotic Fracture 6.5% Hip Fracture 0.4% Reported Risk Factors: [place] (), Neck BMD=0.726, BMI=33.3 (1) FRAX(R) Version 3.08. Fracture probability calculated for an untreated patient. Fracture probability may be lower if the patient has received treatment. Clinical Information Provided by Patient: Has used the following medications: HRT (i.e. estrogen/hormone therapy), Vitamin D, Calcium Patient maximum height was 65 Menopause Age: 53 No regular weight bearing exercise Drinks caffeinated beverages Onset of menses at age 13 Number of children 2 Impression: The patient has low bone mass, based on the Left Femoral Neck T-score. The patient has an estimated ten-year risk of hip fracture of 0.4% and an estimated ten-year risk of major fracture of 6.5%, based on the WHO FRAX algorithm. Discussion: BONE DENSITY IS LOW AT ONE OR MORE SKELETAL SITES. This patient's lowest T-score is low at one or more skeletal sites. It meets the World Health Organization's (WHO) criteria for ?low bone mass? (T-score between -1.0 and -2.5). The patient's 10-year risk of fracture as calculated by FRAX is less than the threshold where pharmacological therapy is recommended by the National Osteoporosis Foundation (NOF). However, all treatment decisions require clinical judgment and consideration of individual patient factors, including patient preferences, comorbidities, previous drug use, risk factors not captured in the FRAX model (e.g., frailty, falls, vitamin D deficiency, increased bone turnover, interval significant decline in bone density) and possible under or overestimation of fracture risk by FRAX. The patient should follow a healthful lifestyle (good nutrition with adequate calcium and vitamin D, and appropriate weight-bearing exercise). Follow-Up: Consider repeating this study in 2 to 3 years to reassess this patient's status, or sooner if there is some new clinical indication. Reported by: LUIS on 07/30/2024 9:00:00 AM. Reviewed, dictated and finalized at location A.
--- OUTSIDE RECORDS SUMMARY | 2024-07-30 08:20 | XMS_ITS | Clinical Summary ---
Author Organization [facility] Address [address] [place] [address] Care Team Providers Care Dairy Scientist Name Role Phone Unavailable Primary Care Provider Unavailabl e Source Comments [facility],non-owned Affiliates and Associated Physician Practices is amultiple site organization consisting of ambulatory clinics and hospital sitesin [place], [place], [place] and [place]. This disclosure is being madepursuant to the Care Everywhere program and may not contain all information available regarding this patient. Last updated 17.[employer] [facility] Allergies Active Allergy Reactions Criticality Noted Date Comments Penicillins Swelling 12/04/2017 Medications * Be aware that medications may not be up to date on this document. Alwaysverify current medications with the patient. ESCITALOPRAM OXALATE PO Active Social History Tobacco Use Types Packs/Day Years Used Date Smoking Tobacco: Never Assessed Comments Unknown Sex and Gender Information Value Date Recorded Sex Assigned at Not on file Legal Sex Female 7:22 AM CDT Gender Identity Not on file Sexual Orientation [...] 5:07 PM CDT Height 165.1 cm (5' 5) 12/04/2017 5:07 PM CDT Body Mass Index [...] SCREENING 1965 LIPID TESTING 1965 MAMMOGRAM 1965 HIV SCREENING 1980 HEPATITIS C SCREENING 09/30/1983 DTAP/TDAP/TD VACCINES (1 - Tdap) 1984 HEPATITIS B VACCINE (1 of 3 - 19+ 3-dose series) 1984 PNEUMOCOCCAL VACCINE 50+ (1 of 1 - PCV) 10/05/2015 ZOSTER VACCINE (1 of 2) 10/05/2015 SCREENING FOR DIABETES 12/04/2017 COVID-19 VACCINE (1 - 2023-2 5 season) 2023 DEPRESSION SCREENING 03/05/2024 INFLUENZA VACCINE (Season Ended) 2024 HIB VACCINE Aged Out No longer eligi ble based on patient's age to complete this topic HPV VACCINE Aged Out No longer eligi ble based on patient's age to complete this topic MENINGOCOCCAL (Group B) VACC INE SHARED DECISION-MAKING Aged Out No longer eligibl e based on patient's age to complete this topic MENINGOCOCCAL GROUPS A/C/Y/W VACCINE Aged Out No longer eligible b ased on patient's age to complete this topic Insurance AETNA
--- OUTSIDE RECORDS SUMMARY | 2024-07-30 08:20 | XMS_ITS | Clinical Summary ---
Author Organization [facility] Address [address] [address] Care Team Providers Care Distresser Name Role Phone James Martinez MD Primary Care Provider [phone] [phone] Allergies Active Allergy Reactions Criticality Noted Date [...] (12/19/2018): Added automatically from request for surgery [id number] Hypertrophy of nasal turbinates 12/19/2018 Overview (12/19/2018): Added automatically from request for surgery [id number] Dysfunction of both eustachian tubes 12/19/2018 Overview (12/19/2018): Added automatically from request for surgery [id number] Resolved Problems Problem Noted Date Diagnosed Date [...] on file Legal Sex Female 9:35 PM COMMUNITY DEVELOPMENT DIRECTOR Gender Identity Not on file Sexual Orientation Not on file Obstetrics History Last Filed Vital Signs Vital Sign Reading Time Taken Comments Blood Pressure 122/82 06/06/2023 8:54 AM CDT Pulse 92 06/06/2023 8:54 AM CDT Temperature 36.6 C (97.9 F) 03/07/2019 9:31 AM COMMUNITY DEVELOPMENT DIRECTOR Respiratory Rate 11 03/07/2019 9:55 AM COMMUNITY DEVELOPMENT DIRECTOR Oxygen Saturation 98% 06/06/2023 8:54 AM CDT Inhaled Oxygen Concentration - - Weight 88.9 kg (196 lb) 06/06/2023 8:54 AM CDT Height 165.1 cm (5' 5) 06/06/2023 8:54 AM CDT Body Mass Index [...] Vaccine (1 of 2) 10/05/2015 Influenza Vaccine (Season Ended) 2024 12/11/2018, 12/19/2017 Pneumococcal vaccine <65 Aged Out No longer eligible based on patient's age to complete this topic Medical Devices Implanted Type Area Naval Science Teacher Device Identifier Shelf Expiration Date Model / Serial / Lot Implantech Alliedsil 3x2in 1 Short Term Implantable Thk.03in Sheeting - [id number] Implanted:Qty: 1 on 03/07/2019 by Shaylee Cota MD at [facility] N/A: Nose Implantech [id number] 06/04/2023 / / [id number] [facility] Advance Directives For more information, please contact: [phone] * Full Code (Latest Code Status on File) Date Activated Date Inactivated Comments 03/07/2019 9:41 AM 03/07/2019 8:37 PM Care Teams Distresser Relationship Specialty Start Date End Date James Martinez MD PCP - General Family Medicine 10/21/18
--- OUTSIDE RECORDS SUMMARY | 2024-07-30 08:20 | XMS_ITS | Referral Summary ---
Author Organization [facility] Address [address] [place] [address] Care Team Providers Care Electrical Controls Designer Name Role Phone James Martinez MD Primary Care Provider [phone] [phone] Allergies Active Allergy Reactions Criticality Noted Date [...] (12/19/2018): Added automatically from request for surgery [id number] Hypertrophy of nasal turbinates 12/19/2018 Overview (12/19/2018): Added automatically from request for surgery [id number] Dysfunction of both eustachian tubes 12/19/2018 Overview (12/19/2018): Added automatically from request for surgery [id number] Resolved Problems Problem Noted Date Diagnosed Date [...] on file Legal Sex Female 9:35 PM MED ASST Gender Identity Not on file Sexual Orientation Not on file Last Filed Vital Signs Vital Sign Reading Time Taken Comments Blood Pressure 122/82 06/06/2023 8:54 AM CDT Pulse 92 06/06/2023 8:54 AM CDT Temperature 36.6 C (97.9 F) 03/07/2019 9:31 AM MED ASST Respiratory Rate 11 03/07/2019 9:55 AM MED ASST Oxygen Saturation 98% 06/06/2023 8:54 AM CDT Inhaled Oxygen Concentration - - Weight 88.9 kg (196 lb) 06/06/2023 8:54 AM CDT Height 165.1 cm (5' 5) 06/06/2023 8:54 AM CDT Body Mass Index 32.62 06/06/2023 8:54 AM CDT Plan of Treatment Not on file Medical Devices Implanted Type Area Press Hand Supervisor Device Identifier Shelf Expiration Date Model / Serial / Lot Implantech Alliedsil 3x2in 1 Short Term Implantable Thk.03in Sheeting - [id number] Implanted:Qty: 1 on 03/07/2019 by Shaylee Cota MD at [facility] N/A: Nose Implantech [id number] 06/04/2023 / / [id number] Insurance [facility] H[facility] [facility] [facility] Advance Directives For more information, please contact: [phone] * Full Code (Latest Code Status on File) Date Activated Date Inactivated Comments 03/07/2019 9:41 AM 03/07/2019 8:37 PM Care Teams Electrical Controls Designer Relationship Specialty Start Date End Date James Martinez MD PCP - General Family Medicine 10/21/18
== END 2024-07-30 08:15 | disposition home or self-care (01) ==
LOC: ANHIMG 08:17
PROVIDERS: PCP Family Medicine; Visit Provider Nurse Practitioner Obstetrics & Gynecology
DX: M85.88 Other specified disorders of bone density and structure, other site (principal); Z78.0 Asymptomatic menopausal state; Z13.820 Encounter for screening for osteoporosis
CPT/HCPCS: 77080

== ENCOUNTER 2024-08-18 08:00 | Outpatient (CLI) | payer OTHER, SELFPAY ==
--- OUTSIDE RECORDS SUMMARY | 2024-08-18 08:03 | XMS_ITS | Clinical Summary ---
Author Organization [facility] C Address [address] [place] [address] Care Team Providers Care Curing Oven Tender Name Role Phone James Martinez MD Primary Care Provider [phone] Allergies Active Allergy Reactions Criticality Noted Date [...] (12/19/2018): Added automatically from request for surgery [id number] Hypertrophy of nasal turbinates 12/19/2018 Overview (12/19/2018): Added automatically from request for surgery [id number] Dysfunction of both eustachian tubes 12/19/2018 Overview (12/19/2018): Added automatically from request for surgery [id number] Resolved Problems Problem Noted Date Diagnosed Date [...] on file Legal Sex Female 9:35 PM REGULATORY LEAD Gender Identity Not on file Sexual Orientation Not on file Obstetrics History Last Filed Vital Signs Vital Sign Reading Time Taken Comments Blood Pressure 122/82 06/06/2023 8:54 AM CDT Pulse 92 06/06/2023 8:54 AM CDT Temperature 36.6 C (97.9 F) 03/07/2019 9:31 AM REGULATORY LEAD Respiratory Rate 11 03/07/2019 9:55 AM REGULATORY LEAD Oxygen Saturation 98% 06/06/2023 8:54 AM CDT [...] this topic Medical Devices Implanted Type Area Cosmetic Dentist Device Identifier Shelf Expiration Date Model / Serial / Lot Implantech Alliedsil 3x2in 1 Short Term Implantable Thk.03in Sheeting - [id number] Implanted:Qty: 1 on 03/07/2019 by Shaylee Cota MD at [facility] N/A: Nose Implantech [id number] 06/04/2023 / / [id number] Insurance [facility] Advance Directives For more information, please contact: [phone] * Full Code (Latest Code Status on File) Date Activated Date Inactivated Comments 03/07/2019 9:41 AM 03/07/2019 8:37 PM Care Teams Curing Oven Tender Relationship Specialty Start Date End Date James Martinez MD PCP - General Family Medicine 10/21/18
--- OUTSIDE RECORDS SUMMARY | 2024-08-18 08:04 | XMS_ITS | Clinical Summary ---
Author Organization [facility] Address [address] [place] [address] Care Team Providers Care Long Distance Billing Operator Name Role Phone Unavailable Primary Care Provider Unavailabl e Source Comments [facility],non-owned Affiliates and Associated Physician Practices is amultiple site organization consisting of ambulatory clinics and hospital sitesin [place], [place], [place] and [place]. This disclosure is being madepursuant to the Care Everywhere program and may not contain all information available regarding this patient. Last updated 17.[employer] [facility] Allergies Active Allergy Reactions Criticality Noted Date [...]
--- OUTSIDE RECORDS SUMMARY | 2024-08-18 08:04 | XMS_ITS | Referral Summary ---
[facility] Organization [facility] Address [address] [place] [address] Care Team Providers Care Therapist Radiation Name Role Phone James Martinez MD Primary Care Provider [phone] Allergies Active Allergy Reactions Criticality Noted Date [...] (12/19/2018): Added automatically from request for surgery [id number] Hypertrophy of nasal turbinates 12/19/2018 Overview (12/19/2018): Added automatically from request for surgery [id number] Dysfunction of both eustachian tubes 12/19/2018 Overview (12/19/2018): Added automatically from request for surgery [id number] Resolved Problems Problem Noted Date Diagnosed Date [...] on file 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 Gender Identity Not on file Sexual Orientation Not on file Last Filed Vital Signs Vital Sign Reading Time Taken Comments Blood Pressure 122/82 06/06/2023 8:54 AM CDT Pulse 92 06/06/2023 8:54 AM CDT Temperature 36.6 C (97.9 F) 03/07/2019 9:31 AM 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 Respiratory Rate 11 03/07/2019 9:55 AM 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 Oxygen Saturation 98% 06/06/2023 8:54 AM CDT Inhaled Oxygen Concentration - - Weight 88.9 kg (196 lb) 06/06/2023 8:54 AM CDT Height 165.1 cm (5' 5) 06/06/2023 8:54 AM CDT Body Mass Index 32.62 06/06/2023 8:54 AM CDT Plan of Treatment Not on file Medical Devices Implanted Type Area Oil Seal Assembler Device Identifier Shelf Expiration Date Model / Serial / Lot Implantech Alliedsil 3x2in 1 Short Term Implantable Thk.03in Sheeting - [id number] Implanted:Qty: 1 on 03/07/2019 by Shaylee Cota MD at [facility] N/A: Nose Implantech [id number] 06/04/2023 / / [id number] Insurance [facility] [employer] [facility] Advance Directives For more information, please contact: [phone] * Full Code (Latest Code Status on File) Date Activated Date Inactivated Comments 03/07/2019 9:41 AM 03/07/2019 8:37 PM Care Teams Therapist Radiation Relationship Specialty Start Date End Date James Martinez MD PCP - General Family Medicine 10/21/18
[2024-08-18 21:03] LABS: Basophils Percent Auto 0.6 % (0.2-1.2); Eosinophils Absolute Auto 0.2 K/mm3 (0-0.3); Eosinophils Percent Auto 2.9 % (0-4.4); Hematocrit 40.5 % (37.0-47.0); Hemoglobin 13.2 g/dL (12.0-15.0); Immature Granulocyte Absolute 0.01 K/mm3 (0.00-0.031); Immature Granulocyte Percent A 0.2 % (0-0.5); Lymphocytes Absolute Auto 2.07 K/mm3 (0.9-3.2); Mean Corpuscular HGB Conc 32.6 g/dl (32-36); Mean Corpuscular Hemoglobin 31.7 pg (26-34); Mean Corpuscular Volume 97.4 fl (80-100); Mean Platelet Volume 12.1 fl (7.4-10.4); Monocytes Absolute Auto 0.5 K/mm3 (0.1-0.6); Monocytes Percent Auto 7.5 % (2.6-8.5); Neutrophils Absolute Auto 3.5 K/mm3 (1.3-6.7); Neutrophils Percent Auto 55.8 % (45.5-73.1); Platelet Count Result 288 k/mm3 (150-375); Red Blood Count 4.16 M/mm3 (4.2-5.4); Red Cell Distribution Width 12.5 % (11.5-14.5); White Blood Count 6.3 K/mm3 (4.5-10.0)
[2024-08-18 22:01] LABS: Alanine Aminotransferase 22 U/L (6-35); Albumin Level 3.9 g/dL (3.5-5.1); Alkaline Phosphatase 60 U/L (38-126); Aspartate Amino Transferase 39 U/L (14-36); Bilirubin,Total 0.6 mg/dL (0.2-1.3); Blood Urea Nitrogen 10 mg/dL (7-17); Calcium 8.7 mg/dL (8.4-10.2); Chloride 108 mmol/L (98-107); Cholesterol 190 mg/dL (0-200); Estimated Glomerular Filt Rate > 60; Glucose 93 mg/dL (65-110); HDL Direct 36 mg/dL; Sodium 137 mmol/L (137-145); Total Protein 7.1 g/dL (6.3-8.2); Triglycerides 106 mg/dL (<150)
[2024-08-18 22:06] LABS: Vitamin D 25 Hydroxy 49.4 ng/mL
[2024-08-18 22:49] LABS: Anion Gap 7 mmol/L (4-12); Carbon Dioxide 22 mmol/L (22-30)
[2024-08-18 23:01] LABS: LDL Cholesterol Direct 105 mg/dL
[2024-08-19 04:02] LABS: Hemoglobin A1C 5.1 % (<5.7)
== END 2024-08-18 08:01 | disposition home or self-care (01) ==
LOC: ANHGOSHLAB 08:01
PROVIDERS: PCP Family Medicine; Visit Provider Nurse Practitioner Family
DX: E55.9 Vitamin D deficiency, unspecified (principal); R73.01 Impaired fasting glucose; G47.00 Insomnia, unspecified; R53.83 Other fatigue; E66.9 Obesity, unspecified
CPT/HCPCS: 36415; 80053; 80061; 82306; 83036; 84443; 85025

== ENCOUNTER 2025-01-26 07:55 | Outpatient (CLI) | payer OTHER, SELFPAY ==
--- NOTE | ~2025-01-26 | MM_ITS ---
EXAMINATION: MM screening [facility] BI w susan HISTORY: Screening TECHNIQUE: Craniocaudal and mediolateral oblique 3-D tomosynthesis images were obtained and synthetic 2-D images were generated. CAD analysis was submitted and interpreted. COMPARISON: Comparison to multiple prior studies sequentially, with oldest reviewed study dated 01/05/2022. BREAST PARENCHYMAL COMPOSITION: Not Dense. The breasts are almost entirely fatty. FINDINGS: There is no evidence of suspicious mass, calcification, or architectural distortion to suggest malignancy in either breast. There has been no suspicious interval change. IMPRESSION: 1. No mammographic evidence of malignancy. 2. Recommend routine screening mammography in one year. BI-RADS Category 1: Negative Reviewed, dictated and finalized at location [facility]. [facility]URSE MIDWIFE
--- OUTSIDE RECORDS SUMMARY | 2025-01-26 08:04 | XMS_ITS | Clinical Summary ---
Author Organization [facility] C Address [address] [place] [address] Care Team Providers Care Museum Or Zoo Director Name Role Phone James Martinez MD Primary Care Provider [phone] Allergies Active Allergy Reactions Criticality Noted Date [...] (12/19/2018): Added automatically from request for surgery [id number] Hypertrophy of nasal turbinates 12/19/2018 Overview (12/19/2018): Added automatically from request for surgery [id number] Dysfunction of both eustachian tubes 12/19/2018 Overview (12/19/2018): Added automatically from request for surgery [id number] Resolved Problems Problem Noted Date Diagnosed Date [...] on file 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 Gender Identity Not on file Sexual Orientation Not on file Last Filed Vital Signs Vital Sign Reading Time Taken Comments Blood Pressure 122/82 06/06/2023 8:54 AM CDT Pulse 92 06/06/2023 8:54 AM CDT Temperature 36.6 C (97.9 F) 03/07/2019 9:31 AM 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 Respiratory Rate 11 03/07/2019 9:55 AM 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 Oxygen Saturation 98% 06/06/2023 8:54 AM CDT [...] (1 of 2) 10/05/2015 Influenza Vaccine (#1) 2024 9, 12/19/2017 Pneumococcal vaccine <65 Aged Out No longer eligible based on patient's age to complete this topic Medical Devices Implanted Type Area Breakfast Cook Device Identifier Shelf Expiration Date Model / Serial / Lot Implantech -700-30 [employer]sil 3x2in 1 Short Term Implantable Thk.03in Sheeting - [id number] Implanted:Qty: 1 on 03/07/2019 by Shaylee Cota MD at [facility] N/A: Nose Implantech [id number] 06/04/2023-700-30 / / [id number] Insurance [facility] Advance Directives For more information, please contact: [phone] * Full Code (Latest Code Status on File) Date Activated Date Inactivated Comments 03/07/2019 9:41 AM 03/07/2019 8:37 PM Care Teams Museum Or Zoo Director Relationship Specialty Start Date End Date James Martinez MD PCP - General Family Medicine 10/21/18
--- OUTSIDE RECORDS SUMMARY | 2025-01-26 08:04 | XMS_ITS | Clinical Summary ---
Author Organization [facility] Address [address] [place] [address] Care Team Providers Care Dial Polisher Name Role Phone Unavailable Primary Care Provider Unavailabl e Source Comments [facility],non-owned Affiliates and Associated Physician Practices is amultiple site organization consisting of ambulatory clinics and hospital sitesin [place], [place], [place] and [place]. This disclosure is being madepursuant to the Care Everywhere program and may not contain all information available regarding this patient. Last updated [email or web address] [facility] Allergies Active Allergy Reactions Criticality Noted Date [...] of 3 - 19+ 3-dose series) 1984 PAP SMEAR 1986 Cervical Cancer Screening 10/05/1995 PAP with HPV 10/05/1995 PNEUMOCOCCAL VACCINE 50+ (1 of 1 - PCV) 10/05/2015 ZOSTER VACCINE (1 of 2) 10/05/2015 SCREENING FOR DIABETES 12/04/2017 DEPRESSION SCREENING 03/05/2024 COVID-19 VACCINE (1 - 2024-2 6 season) 2024 INFLUENZA VACCINE (#1) 2024 HIB VACCINE Aged Out No longer [...]
== END 2025-01-26 07:56 | disposition home or self-care (01) ==
LOC: ANHFOHIMG 07:57
PROVIDERS: PCP Family Medicine; Visit Provider Obstetrics & Gynecology
DX: Z12.31 Encounter for screening mammogram for malignant neoplasm of breast (principal)
CPT/HCPCS: 77063; 77067